=== PATIENT | female | born 1990 | race Caucasian/White ===

== ENCOUNTER → 2016-04-01 | Outpatient (CLI) | payer OTHER ==
[2016-04-01 08:24] LABS: Basophils % (A) 0 %; CH 30.2; CHCM 32.7; Eosinophils # (A) 0.1 k/uL (0-0.7); Eosinophils % (A) 1 %; HCT 45.8 % (34.0-46.0); HDW 2.28; HGB 14.7 gm/dL (11.4-16.0); Luc # (Auto) 0.16; Luc % (Auto) 2; Lymphocytes # (A) 2.5 k/uL (1.0-4.8); Lymphocytes % (A) 35 %; MCH 29.7 pg (25.0-35.0); MCV 92.9 fL (80.0-100.0); Mean Platelet Volume 7.5; Monocytes # (A) 0.5 k/uL (0-1.0); Monocytes % (A) 6 %; Neutrophils # (A) 3.9 k/uL (1.3-7.7); Neutrophils % (A) 55 %; RBC 4.94 m/uL (3.80-5.40); RDW 12.8 % (11.5-15.5); WBC 7.1 k/uL (3.8-10.6); WBC (Perox) 7.05
[2016-04-01 08:41] LABS: ALT 32 U/L (9-52); AST 24 U/L (14-36); Alkaline Phosphatase 57 U/L (38-126); Anion Gap 13 mmol/L; Blood Urea Nitrogen 15 mg/dL (7-17); Calcium 9.8 mg/dL (8.4-10.2); Carbon Dioxide 29 mmol/L (22-30); Chloride 103 mmol/L (98-107); Cholesterol 164 mg/dL (<200); Glucose 89 mg/dL (74-99); HDL Cholesterol 93 mg/dL (40-60); Non-African American GFR(MDRD) >60 (>60 ml/min/1.73 sqM); Potassium 4.2 mmol/L (3.5-5.1); Sodium 145 mmol/L (137-145); Total Protein 7.5 g/dL (6.3-8.2); Triglycerides 76 mg/dL (<150)
== END | disposition home or self-care (01) ==
LOC: LABWHC1 08:01
PROVIDERS: ATTEND Family Medicine
DX: Z00.00 Encounter for general adult medical examination without abnormal findings (principal)
CPT/HCPCS: 36415; 80053; 80061; 83721; 85025